=== PATIENT | female | born 1955 | race Caucasian/White ===

== ENCOUNTER 2021-03-25 14:53 | Inpatient (IN) | payer OTHER ==
[2021-03-25] MEDS ORDERED: IBUPROFEN 400 MG TABLET (FP) PO PRN (15:52)
[2021-03-25] MEDS ORDERED: MAG HYDROX/AL HYDROX/SIMETH 30 ML UNIT-DOSE CUP PO PRN (15:52)
[2021-03-25] MEDS ORDERED: ACETAMINOPHEN 325 MG TABLET (FP) PO PRN ×2 (15:52)
[2021-03-25] MEDS ORDERED: NICOTINE 10 MG CARTRIDGE (INHALER) IH PRN (15:52)
[2021-03-25] MEDS ORDERED: MAGNESIUM HYDROX 2400MG/30ML ORAL SUSPENSION 30 ML CUP PO PRN (15:52)
[2021-03-25] MEDS ORDERED: MAGNESIUM CITRATE 300 ML BOTTLE PO PRN (15:52)
[2021-03-25] MEDS ORDERED: BISMUTH SUBSALICYLATE 524 MG/30 ML PO PRN (15:52)
[2021-03-25] MEDS ORDERED: ONDANSETRON *ODT* 4 MG TABLET SL PRN (15:52)
[2021-03-25 16:51] VITALS: BMI 27.3
[2021-03-25] MEDS: diazePAM 5 MG TABLET PO SCH ×2 (18:57→22:08)
[2021-03-25] MEDS: hydrOXYzine PAMOATE 25 MG CAPSULE (FP) PO SCH ×2 (18:59→22:08)
[2021-03-25] MEDS: THIAMINE HCL 100 MG TABLET (FP) PO SCH (22:08)
[2021-03-25] MEDS: MELATONIN 5 MG TABLETS PO SCH (22:09)
[2021-03-26] MEDS: MENTHOL/PHENOL 1 EACH UD MM PRN (04:49)
[2021-03-26] MEDS: hydrOXYzine PAMOATE 25 MG CAPSULE (FP) PO SCH (06:14)
[2021-03-26] MEDS: diazePAM 5 MG TABLET PO SCH ×4 (06:15→22:19)
[2021-03-26] MEDS: PRENATAL VITAMINS W/ FOLIC ACID TABLET (FP) PO SCH (10:10)
[2021-03-26] MEDS: METHOCARBAMOL 500 MG TABLET PO PRN (10:10)
[2021-03-26] MEDS: methaDONE HCL 40 MG DISPERSABLE TABLET PO SCH (10:32)
[2021-03-26 11:08] LABS: HEMATOCRIT 35.4 % (32.4-45.2); MCH 31.9 pg (25.7-33.7); MCHC 33.9 g/dl (32.0-36.0); MEAN CELL VOLUME 94.1 fl (80-96); MEAN PLT VOLUME 9.2 fl (7.5-11.1); RBC 3.76 M/mm3 (3.60-5.2); RDW 13.8 % (11.6-15.6); WHITE BLOOD COUNT 6.4 K/mm3 (4.0-10.0)
[2021-03-26 11:38] LABS: CALCIUM 9.4 mg/dL (8.5-10.1)
[2021-03-26 11:39] LABS: ALBUMIN 3.9 g/dl (3.4-5.0); BLOOD UREA NITROGEN 17.8 mg/dL (7-18)
[2021-03-26 11:42] LABS: CREATININE 0.9 mg/dL (0.55-1.3)
[2021-03-26 11:43] LABS: BILIRUBIN,TOTAL 0.3 mg/dL (0.2-1); TOT PROT 8.3 g/dl (6.4-8.2)
[2021-03-26] MEDS: MIRTAZAPINE 15 MG TABLET (FP) PO SCH (22:19)
[2021-03-26] MEDS: MELATONIN 5 MG TABLETS PO SCH (22:19)
[2021-03-26] MEDS: THIAMINE HCL 100 MG TABLET (FP) PO SCH (22:19)
[2021-03-27] MEDS: diazePAM 5 MG TABLET PO SCH ×3 (05:54→22:28)
[2021-03-27] MEDS: methaDONE HCL 40 MG DISPERSABLE TABLET PO SCH (05:54)
[2021-03-27] MEDS: hydrOXYzine PAMOATE 25 MG CAPSULE (FP) PO PRN (05:56)
[2021-03-27] MEDS: METHOCARBAMOL 500 MG TABLET PO PRN (10:45)
[2021-03-27] MEDS: PRENATAL VITAMINS W/ FOLIC ACID TABLET (FP) PO SCH (10:45)
[2021-03-27] MEDS: DULoxetine HCL 30 MG CAPSULE.DR PO SCH (10:45)
[2021-03-27] MEDS: diazePAM 5 MG TABLET PO PRN (10:45)
[2021-03-27 11:36] LABS: HEMATOCRIT 35.2 % (32.4-45.2); HEMOGLOBIN 11.9 GM/dL (10.7-15.3); MCH 31.7 pg (25.7-33.7); MCHC 33.8 g/dl (32.0-36.0); MEAN CELL VOLUME 93.8 fl (80-96); MEAN PLT VOLUME 7.2 fl (7.5-11.1); PLATELET COUNT 315 10^3/uL (134-434); RBC 3.75 M/mm3 (3.60-5.2); RDW 13.9 % (11.6-15.6); WHITE BLOOD COUNT 4.5 K/mm3 (4.0-10.0)
[2021-03-27] MEDS: THIAMINE HCL 100 MG TABLET (FP) PO SCH (22:28)
[2021-03-27] MEDS: MIRTAZAPINE 15 MG TABLET (FP) PO SCH (22:28)
[2021-03-27] MEDS: MELATONIN 5 MG TABLETS PO SCH (22:29)
[2021-03-27] MEDS: MENTHOL/PHENOL 1 EACH UD MM PRN (22:29)
[2021-03-28] MEDS: methaDONE HCL 40 MG DISPERSABLE TABLET PO SCH (05:27)
[2021-03-28] MEDS: diazePAM 5 MG TABLET PO SCH ×2 (05:28→18:13)
[2021-03-28] MEDS: METHOCARBAMOL 500 MG TABLET PO PRN ×2 (10:23→23:17)
[2021-03-28] MEDS: DULoxetine HCL 30 MG CAPSULE.DR PO SCH (10:23)
[2021-03-28] MEDS: PRENATAL VITAMINS W/ FOLIC ACID TABLET (FP) PO SCH (10:23)
[2021-03-28] MEDS: diazePAM 5 MG TABLET PO PRN (10:23)
[2021-03-28] MEDS: MELATONIN 5 MG TABLETS PO SCH (22:15)
[2021-03-28] MEDS: MIRTAZAPINE 15 MG TABLET (FP) PO SCH (22:15)
[2021-03-28] MEDS: THIAMINE HCL 100 MG TABLET (FP) PO SCH (22:15)
[2021-03-28] MEDS: MENTHOL/PHENOL 1 EACH UD MM PRN (22:16)
[2021-03-29] MEDS: methaDONE HCL 40 MG DISPERSABLE TABLET PO SCH (05:36)
[2021-03-29] MEDS ORDERED: diazePAM 5 MG TABLET PO ONE (06:00)
[2021-03-29] MEDS: METHOCARBAMOL 500 MG TABLET PO PRN (10:09)
[2021-03-29] MEDS: hydrOXYzine PAMOATE 25 MG CAPSULE (FP) PO PRN (10:09)
[2021-03-29] MEDS: DULoxetine HCL 30 MG CAPSULE.DR PO SCH (10:09)
[2021-03-29] MEDS: PRENATAL VITAMINS W/ FOLIC ACID TABLET (FP) PO SCH (10:09)
[2021-03-29 18:30] VITALS: BP 147/82; PULSE 76; TEMP 96.8
== END 2021-03-29 17:45 | disposition other institution (70) | DRG 773 ==
LOC: YASAS 14:53 → Y6N 17:32
PROVIDERS: ADMIT Allergy & Immunology; ATTEND Allergy & Immunology
PROC: HZ2ZZZZ Detoxification Services for Substance Abuse Treatment (ICD-10-PCS; principal; 2021-03-25)
DX: F13.230 Sedative, hypnotic or anxiolytic dependence with withdrawal, uncomplicated (principal); F11.20 Opioid dependence, uncomplicated; F17.210 Nicotine dependence, cigarettes, uncomplicated; F19.282 Other psychoactive substance dependence with psychoactive substance-induced sleep disorder; F31.9 Bipolar disorder, unspecified; F43.10 Post-traumatic stress disorder, unspecified; F32.A Depression, unspecified; Z21 Asymptomatic human immunodeficiency virus [HIV] infection status; I25.10 Atherosclerotic heart disease of native coronary artery without angina pectoris; I10 Essential (primary) hypertension; J45.909 Unspecified asthma, uncomplicated; E11.9 Type 2 diabetes mellitus without complications; Z79.4 Long term (current) use of insulin; Z59.00 Homelessness unspecified
CPT/HCPCS: 36415; 80053; 82962; 85027; 86780; 93005; 93010; C9803; U0003; U0005

== ENCOUNTER 2021-03-29 17:33 | Inpatient (IN) | payer OTHER ==
[~2021-03-29 17:33] MED LIST: IBUPROFEN 400 MG TABLET (FP) PO PRN; LOPERAMIDE HCL 2 MG CAPSULE PO PRN; MAG HYDROX/AL HYDROX/SIMETH 30 ML UNIT-DOSE CUP PO PRN; MAGNESIUM CITRATE 300 ML BOTTLE PO PRN; MAGNESIUM HYDROX 2400MG/30ML ORAL SUSPENSION 30 ML CUP PO PRN; P-EPHED 60MG/TRIPROLIDI 2.5MG TABLET PO PRN; guaiFENesin 200 MG/10 ML 10 ML UNIT-DOSE CUPS PO PRN
[2021-03-29] MEDS: THIAMINE HCL 100 MG TABLET (FP) PO SCH (21:05)
[2021-03-29] MEDS: MIRTAZAPINE 15 MG TABLET (FP) PO SCH (21:05)
[2021-03-29] MEDS: MELATONIN 5 MG TABLETS PO SCH (21:41)
[2021-03-30] MEDS: methaDONE HCL 40 MG DISPERSABLE TABLET PO SCH (08:53)
[2021-03-30] MEDS: hydrOXYzine PAMOATE 25 MG CAPSULE (FP) PO PRN (08:54)
[2021-03-30] MEDS: DULoxetine HCL 30 MG CAPSULE.DR PO SCH (09:38)
[2021-03-30] MEDS: PRENATAL VITAMINS W/ FOLIC ACID TABLET (FP) PO SCH (09:38)
[2021-03-30] MEDS: amLODIPine BESYLATE 5 MG TABLET (FP) PO SCH (17:40)
[2021-03-30] MEDS: LISINOPRIL 5 MG TABLET PO SCH (17:40)
[2021-03-30] MEDS ORDERED: ABACAVIR SULFATE 300 MG TABLET PO SCH (18:30)
[2021-03-30] MEDS ORDERED: DOLUTEGRAVIR SODIUM 50 MG TABLET (NON-FORMULARY) PO SCH (18:30)
[2021-03-30] MEDS ORDERED: lamiVUDine 150 MG TABLET PO SCH (18:30)
[2021-03-30] MEDS: RIVAROXABAN 20 MG TABLET PO SCH (21:36)
[2021-03-30] MEDS: THIAMINE HCL 100 MG TABLET (FP) PO SCH (21:36)
[2021-03-30] MEDS: MIRTAZAPINE 15 MG TABLET (FP) PO SCH (21:37)
[2021-03-30] MEDS: ATORVASTATIN CA 40 MG TABLET (FP) PO SCH (21:37)
[2021-03-30] MEDS: MELATONIN 5 MG TABLETS PO SCH (21:37)
[2021-03-30] MEDS: GABAPENTIN 300 MG CAPSULE PO SCH (21:38)
[2021-03-30] MEDS: ABACAVIR/DOLUTEGRAVIR/LAMIVUDI (TRIUMEQ) TABLET -NF PO SCH (22:37)
[2021-03-30] MEDS: BENZOCAINE/MENTH/CETYLPYRD CL 1 EACH LOZENGE MM PRN (22:38)
[2021-03-31] MEDS ORDERED: PT OWN MED DRAWER 7, Y5N ONE (03:30)
[2021-03-31] MEDS: methaDONE HCL 40 MG DISPERSABLE TABLET PO SCH (06:32)
[2021-03-31] MEDS: sitaGLIPtin PHOSPHATE 50 MG TABLET PO SCH (06:32)
[2021-03-31] MEDS ORDERED: PATIENT'S OWN MEDICATION (NON-FORMULARY) (Fenofibrate Nanocrystallized [Fenofibrate] 145 M PO SCH (10:00)
[2021-03-31] MEDS: RIVAROXABAN 20 MG TABLET PO SCH (10:27)
[2021-03-31] MEDS: GABAPENTIN 300 MG CAPSULE PO SCH ×2 (10:27→21:38)
[2021-03-31] MEDS: DULoxetine HCL 30 MG CAPSULE.DR PO SCH (10:27)
[2021-03-31] MEDS: FENOFIBRIC ACID 135 MG CAP PO SCH (10:27)
[2021-03-31] MEDS: ASPIRIN COATED 81 MG TABLET.EC PO SCH (10:27)
[2021-03-31] MEDS: amLODIPine BESYLATE 5 MG TABLET (FP) PO SCH (10:27)
[2021-03-31] MEDS: PRENATAL VITAMINS W/ FOLIC ACID TABLET (FP) PO SCH (10:27)
[2021-03-31] MEDS: LISINOPRIL 5 MG TABLET PO SCH (10:27)
[2021-03-31] MEDS: ABACAVIR/DOLUTEGRAVIR/LAMIVUDI (TRIUMEQ) TABLET -NF PO SCH (10:28)
[2021-03-31] MEDS: CHOLECALCIFEROL (VIT D3) 1,000 UNIT (25 MCG) TABLET PO SCH (13:04)
[2021-03-31] MEDS: hydrOXYzine PAMOATE 25 MG CAPSULE (FP) PO PRN (21:37)
[2021-03-31] MEDS: ATORVASTATIN CA 40 MG TABLET (FP) PO SCH (21:38)
[2021-03-31] MEDS: MIRTAZAPINE 15 MG TABLET (FP) PO SCH (21:38)
[2021-03-31] MEDS: MELATONIN 5 MG TABLETS PO SCH (21:38)
[2021-03-31] MEDS: THIAMINE HCL 100 MG TABLET (FP) PO SCH (21:38)
[2021-04-01] MEDS ORDERED: PT OWN MED DRAWER 7, Y5N ONE (03:24)
[2021-04-01] MEDS: methaDONE HCL 40 MG DISPERSABLE TABLET PO SCH (06:42)
[2021-04-01] MEDS: sitaGLIPtin PHOSPHATE 50 MG TABLET PO SCH (06:42)
[2021-04-01] MEDS: CHOLECALCIFEROL (VIT D3) 1,000 UNIT (25 MCG) TABLET PO SCH (10:44)
[2021-04-01] MEDS: PRENATAL VITAMINS W/ FOLIC ACID TABLET (FP) PO SCH (10:44)
[2021-04-01] MEDS: ASPIRIN COATED 81 MG TABLET.EC PO SCH (10:44)
[2021-04-01] MEDS: RIVAROXABAN 20 MG TABLET PO SCH (10:44)
[2021-04-01] MEDS: GABAPENTIN 300 MG CAPSULE PO SCH ×2 (10:44→21:51)
[2021-04-01] MEDS: DULoxetine HCL 30 MG CAPSULE.DR PO SCH (10:45)
[2021-04-01] MEDS: amLODIPine BESYLATE 5 MG TABLET (FP) PO SCH (10:45)
[2021-04-01] MEDS: FENOFIBRIC ACID 135 MG CAP PO SCH (10:45)
[2021-04-01] MEDS: LISINOPRIL 5 MG TABLET PO SCH (10:45)
[2021-04-01] MEDS: ABACAVIR/DOLUTEGRAVIR/LAMIVUDI (TRIUMEQ) TABLET -NF PO SCH (10:45)
[2021-04-01] MEDS: ACETAMINOPHEN 325 MG TABLET (FP) PO PRN (10:47)
[2021-04-01] MEDS: THIAMINE HCL 100 MG TABLET (FP) PO SCH (21:51)
[2021-04-01] MEDS: MELATONIN 5 MG TABLETS PO SCH (21:51)
[2021-04-01] MEDS: ATORVASTATIN CA 40 MG TABLET (FP) PO SCH (21:51)
[2021-04-01] MEDS: MIRTAZAPINE 15 MG TABLET (FP) PO SCH (21:51)
[2021-04-02] MEDS: sitaGLIPtin PHOSPHATE 50 MG TABLET PO SCH (06:49)
[2021-04-02] MEDS: methaDONE HCL 40 MG DISPERSABLE TABLET PO SCH (06:49)
[2021-04-02] MEDS: ASPIRIN COATED 81 MG TABLET.EC PO SCH (10:21)
[2021-04-02] MEDS: GABAPENTIN 300 MG CAPSULE PO SCH ×2 (10:21→21:42)
[2021-04-02] MEDS: DULoxetine HCL 30 MG CAPSULE.DR PO SCH (10:22)
[2021-04-02] MEDS: METHYL SALICYLATE/MENTHOL OINT 30 GM TUBE TP SCH ×2 (10:22→21:45)
[2021-04-02] MEDS: PRENATAL VITAMINS W/ FOLIC ACID TABLET (FP) PO SCH (10:23)
[2021-04-02] MEDS: amLODIPine BESYLATE 5 MG TABLET (FP) PO SCH (10:23)
[2021-04-02] MEDS: LISINOPRIL 5 MG TABLET PO SCH (10:23)
[2021-04-02] MEDS: ACETAMINOPHEN 325 MG TABLET (FP) PO PRN (10:24)
[2021-04-02] MEDS: ABACAVIR/DOLUTEGRAVIR/LAMIVUDI (TRIUMEQ) TABLET -NF PO SCH (10:25)
[2021-04-02] MEDS: FENOFIBRIC ACID 135 MG CAP PO SCH (10:26)
[2021-04-02] MEDS: RIVAROXABAN 20 MG TABLET PO SCH (10:26)
[2021-04-02] MEDS: CHOLECALCIFEROL (VIT D3) 1,000 UNIT (25 MCG) TABLET PO SCH (10:27)
[2021-04-02] MEDS ORDERED: ACETAMINOPHEN 325 MG TABLET (FP) PO PRN (10:36)
[2021-04-02] MEDS: LIDOCAINE 5% TOPICAL PATCH TP SCH (13:56)
[2021-04-02] MEDS: BENZOCAINE/MENTH/CETYLPYRD CL 1 EACH LOZENGE MM PRN (20:58)
[2021-04-02] MEDS: MELATONIN 5 MG TABLETS PO SCH (21:42)
[2021-04-02] MEDS: ATORVASTATIN CA 40 MG TABLET (FP) PO SCH (21:42)
[2021-04-02] MEDS: THIAMINE HCL 100 MG TABLET (FP) PO SCH (21:42)
[2021-04-02] MEDS: MIRTAZAPINE 15 MG TABLET (FP) PO SCH (21:43)
[2021-04-02] MEDS: LIDOCAINE PATCH REMOVAL MC SCH (21:43)
[2021-04-03] MEDS: methaDONE HCL 40 MG DISPERSABLE TABLET PO SCH (06:40)
[2021-04-03] MEDS: sitaGLIPtin PHOSPHATE 50 MG TABLET PO SCH (06:41)
[2021-04-03] MEDS: ASPIRIN COATED 81 MG TABLET.EC PO SCH (10:13)
[2021-04-03] MEDS: PRENATAL VITAMINS W/ FOLIC ACID TABLET (FP) PO SCH (10:13)
[2021-04-03] MEDS: DULoxetine HCL 30 MG CAPSULE.DR PO SCH (10:13)
[2021-04-03] MEDS: ABACAVIR/DOLUTEGRAVIR/LAMIVUDI (TRIUMEQ) TABLET -NF PO SCH (10:14)
[2021-04-03] MEDS: RIVAROXABAN 20 MG TABLET PO SCH (10:14)
[2021-04-03] MEDS: amLODIPine BESYLATE 5 MG TABLET (FP) PO SCH (10:14)
[2021-04-03] MEDS: FENOFIBRIC ACID 135 MG CAP PO SCH (10:14)
[2021-04-03] MEDS: GABAPENTIN 300 MG CAPSULE PO SCH ×2 (10:14→21:52)
[2021-04-03] MEDS: LIDOCAINE 5% TOPICAL PATCH TP SCH (10:14)
[2021-04-03] MEDS: LISINOPRIL 5 MG TABLET PO SCH (10:15)
[2021-04-03] MEDS: CHOLECALCIFEROL (VIT D3) 1,000 UNIT (25 MCG) TABLET PO SCH (10:15)
[2021-04-03] MEDS: METHYL SALICYLATE/MENTHOL OINT 30 GM TUBE TP SCH ×2 (10:17→22:31)
[2021-04-03] MEDS: MELATONIN 5 MG TABLETS PO SCH (21:52)
[2021-04-03] MEDS: MIRTAZAPINE 15 MG TABLET (FP) PO SCH (21:52)
[2021-04-03] MEDS: LIDOCAINE PATCH REMOVAL MC SCH (21:52)
[2021-04-03] MEDS: ATORVASTATIN CA 40 MG TABLET (FP) PO SCH (21:52)
[2021-04-03] MEDS: THIAMINE HCL 100 MG TABLET (FP) PO SCH (22:31)
[2021-04-04] MEDS ORDERED: PT OWN MED DRAWER 7, Y5N ONE (03:35)
[2021-04-04] MEDS: methaDONE HCL 40 MG DISPERSABLE TABLET PO SCH (06:37)
[2021-04-04] MEDS: sitaGLIPtin PHOSPHATE 50 MG TABLET PO SCH (06:37)
[2021-04-04] MEDS: PRENATAL VITAMINS W/ FOLIC ACID TABLET (FP) PO SCH (10:18)
[2021-04-04] MEDS: DULoxetine HCL 30 MG CAPSULE.DR PO SCH (10:18)
[2021-04-04] MEDS: ASPIRIN COATED 81 MG TABLET.EC PO SCH (10:18)
[2021-04-04] MEDS: LISINOPRIL 5 MG TABLET PO SCH (10:18)
[2021-04-04] MEDS: ABACAVIR/DOLUTEGRAVIR/LAMIVUDI (TRIUMEQ) TABLET -NF PO SCH (10:18)
[2021-04-04] MEDS: GABAPENTIN 300 MG CAPSULE PO SCH ×2 (10:18→21:56)
[2021-04-04] MEDS: amLODIPine BESYLATE 5 MG TABLET (FP) PO SCH (10:19)
[2021-04-04] MEDS: FENOFIBRIC ACID 135 MG CAP PO SCH (10:19)
[2021-04-04] MEDS: METHYL SALICYLATE/MENTHOL OINT 30 GM TUBE TP SCH ×2 (10:19→21:57)
[2021-04-04] MEDS: LIDOCAINE 5% TOPICAL PATCH TP SCH (10:20)
[2021-04-04] MEDS: BENZOCAINE/MENTH/CETYLPYRD CL 1 EACH LOZENGE MM PRN (10:22)
[2021-04-04] MEDS: CHOLECALCIFEROL (VIT D3) 1,000 UNIT (25 MCG) TABLET PO SCH (10:29)
[2021-04-04] MEDS: RIVAROXABAN 20 MG TABLET PO SCH (10:30)
[2021-04-04] MEDS: ATORVASTATIN CA 40 MG TABLET (FP) PO SCH (21:56)
[2021-04-04] MEDS: MELATONIN 5 MG TABLETS PO SCH (21:56)
[2021-04-04] MEDS: MIRTAZAPINE 15 MG TABLET (FP) PO SCH (21:56)
[2021-04-04] MEDS: THIAMINE HCL 100 MG TABLET (FP) PO SCH (21:56)
[2021-04-04] MEDS: LIDOCAINE PATCH REMOVAL MC SCH (21:57)
[2021-04-05] MEDS: sitaGLIPtin PHOSPHATE 50 MG TABLET PO SCH (06:42)
[2021-04-05] MEDS: methaDONE HCL 40 MG DISPERSABLE TABLET PO SCH (06:43)
[2021-04-05] MEDS: DULoxetine HCL 30 MG CAPSULE.DR PO SCH (10:39)
[2021-04-05] MEDS: ASPIRIN COATED 81 MG TABLET.EC PO SCH (10:39)
[2021-04-05] MEDS: GABAPENTIN 300 MG CAPSULE PO SCH ×2 (10:39→22:04)
[2021-04-05] MEDS: PRENATAL VITAMINS W/ FOLIC ACID TABLET (FP) PO SCH (10:39)
[2021-04-05] MEDS: amLODIPine BESYLATE 5 MG TABLET (FP) PO SCH (10:39)
[2021-04-05] MEDS: LISINOPRIL 5 MG TABLET PO SCH (10:40)
[2021-04-05] MEDS: METHYL SALICYLATE/MENTHOL OINT 30 GM TUBE TP SCH ×2 (10:40→22:01)
[2021-04-05] MEDS: RIVAROXABAN 20 MG TABLET PO SCH (10:40)
[2021-04-05] MEDS: LIDOCAINE 5% TOPICAL PATCH TP SCH (10:40)
[2021-04-05] MEDS: ABACAVIR/DOLUTEGRAVIR/LAMIVUDI (TRIUMEQ) TABLET -NF PO SCH (10:41)
[2021-04-05] MEDS: FENOFIBRIC ACID 135 MG CAP PO SCH (10:41)
[2021-04-05] MEDS: CHOLECALCIFEROL (VIT D3) 1,000 UNIT (25 MCG) TABLET PO SCH (10:41)
[2021-04-05] MEDS: LIDOCAINE PATCH REMOVAL MC SCH (22:01)
[2021-04-05] MEDS: ATORVASTATIN CA 40 MG TABLET (FP) PO SCH (22:04)
[2021-04-05] MEDS: MELATONIN 5 MG TABLETS PO SCH (22:04)
[2021-04-05] MEDS: THIAMINE HCL 100 MG TABLET (FP) PO SCH (22:04)
[2021-04-05] MEDS: BENZOCAINE/MENTH/CETYLPYRD CL 1 EACH LOZENGE MM PRN (22:05)
[2021-04-05] MEDS: MIRTAZAPINE 15 MG TABLET (FP) PO SCH (22:05)
[2021-04-06] MEDS ORDERED: PT OWN MED DRAWER 7, Y5N ONE (03:18)
[2021-04-06] MEDS: methaDONE HCL 40 MG DISPERSABLE TABLET PO SCH (06:48)
[2021-04-06] MEDS: sitaGLIPtin PHOSPHATE 50 MG TABLET PO SCH (06:49)
[2021-04-06] MEDS: METHYL SALICYLATE/MENTHOL OINT 30 GM TUBE TP SCH ×2 (10:22→21:17)
[2021-04-06] MEDS: PRENATAL VITAMINS W/ FOLIC ACID TABLET (FP) PO SCH (10:22)
[2021-04-06] MEDS: ASPIRIN COATED 81 MG TABLET.EC PO SCH (10:23)
[2021-04-06] MEDS: GABAPENTIN 300 MG CAPSULE PO SCH ×2 (10:23→21:16)
[2021-04-06] MEDS: DULoxetine HCL 30 MG CAPSULE.DR PO SCH (10:23)
[2021-04-06] MEDS: LISINOPRIL 5 MG TABLET PO SCH (10:23)
[2021-04-06] MEDS: amLODIPine BESYLATE 5 MG TABLET (FP) PO SCH (10:23)
[2021-04-06] MEDS: ABACAVIR/DOLUTEGRAVIR/LAMIVUDI (TRIUMEQ) TABLET -NF PO SCH (10:24)
[2021-04-06] MEDS: RIVAROXABAN 20 MG TABLET PO SCH (10:24)
[2021-04-06] MEDS: CHOLECALCIFEROL (VIT D3) 1,000 UNIT (25 MCG) TABLET PO SCH (10:24)
[2021-04-06] MEDS: FENOFIBRIC ACID 135 MG CAP PO SCH (10:26)
[2021-04-06] MEDS: LIDOCAINE 5% TOPICAL PATCH TP SCH (11:18)
[2021-04-06] MEDS: MELATONIN 5 MG TABLETS PO SCH (21:16)
[2021-04-06] MEDS: THIAMINE HCL 100 MG TABLET (FP) PO SCH (21:16)
[2021-04-06] MEDS: MIRTAZAPINE 15 MG TABLET (FP) PO SCH (21:16)
[2021-04-06] MEDS: LIDOCAINE PATCH REMOVAL MC SCH (21:16)
[2021-04-06] MEDS: ATORVASTATIN CA 40 MG TABLET (FP) PO SCH (21:16)
[2021-04-07] MEDS: sitaGLIPtin PHOSPHATE 50 MG TABLET PO SCH (07:02)
[2021-04-07] MEDS: methaDONE HCL 40 MG DISPERSABLE TABLET PO SCH (07:02)
[2021-04-07] MEDS: METHYL SALICYLATE/MENTHOL OINT 30 GM TUBE TP SCH ×2 (10:54→21:31)
[2021-04-07] MEDS: PRENATAL VITAMINS W/ FOLIC ACID TABLET (FP) PO SCH (10:54)
[2021-04-07] MEDS: amLODIPine BESYLATE 5 MG TABLET (FP) PO SCH (10:54)
[2021-04-07] MEDS: DULoxetine HCL 30 MG CAPSULE.DR PO SCH (10:55)
[2021-04-07] MEDS: LIDOCAINE 5% TOPICAL PATCH TP SCH (10:55)
[2021-04-07] MEDS: LISINOPRIL 5 MG TABLET PO SCH (10:55)
[2021-04-07] MEDS: ASPIRIN COATED 81 MG TABLET.EC PO SCH (10:55)
[2021-04-07] MEDS: GABAPENTIN 300 MG CAPSULE PO SCH ×2 (10:55→21:30)
[2021-04-07] MEDS: ABACAVIR/DOLUTEGRAVIR/LAMIVUDI (TRIUMEQ) TABLET -NF PO SCH (10:56)
[2021-04-07] MEDS: RIVAROXABAN 20 MG TABLET PO SCH (10:56)
[2021-04-07] MEDS: CHOLECALCIFEROL (VIT D3) 1,000 UNIT (25 MCG) TABLET PO SCH (10:56)
[2021-04-07] MEDS: FENOFIBRIC ACID 135 MG CAP PO SCH (10:57)
[2021-04-07] MEDS: BENZOCAINE/MENTH/CETYLPYRD CL 1 EACH LOZENGE MM PRN (11:00)
[2021-04-07] MEDS: MIRTAZAPINE 15 MG TABLET (FP) PO SCH (21:30)
[2021-04-07] MEDS: MELATONIN 5 MG TABLETS PO SCH (21:30)
[2021-04-07] MEDS: THIAMINE HCL 100 MG TABLET (FP) PO SCH (21:30)
[2021-04-07] MEDS: LIDOCAINE PATCH REMOVAL MC SCH (21:30)
[2021-04-07] MEDS: ATORVASTATIN CA 40 MG TABLET (FP) PO SCH (21:30)
[2021-04-08] MEDS ORDERED: PT OWN MED DRAWER 7, Y5N ONE (03:27)
[2021-04-08] MEDS: sitaGLIPtin PHOSPHATE 50 MG TABLET PO SCH (06:44)
[2021-04-08] MEDS: methaDONE HCL 40 MG DISPERSABLE TABLET PO SCH (06:44)
[2021-04-08] MEDS: PRENATAL VITAMINS W/ FOLIC ACID TABLET (FP) PO SCH (10:52)
[2021-04-08] MEDS: LISINOPRIL 5 MG TABLET PO SCH (10:53)
[2021-04-08] MEDS: LIDOCAINE 5% TOPICAL PATCH TP SCH (10:53)
[2021-04-08] MEDS: ASPIRIN COATED 81 MG TABLET.EC PO SCH (10:53)
[2021-04-08] MEDS: amLODIPine BESYLATE 5 MG TABLET (FP) PO SCH (10:53)
[2021-04-08] MEDS: METHYL SALICYLATE/MENTHOL OINT 30 GM TUBE TP SCH ×2 (10:53→21:53)
[2021-04-08] MEDS: GABAPENTIN 300 MG CAPSULE PO SCH ×2 (10:53→21:53)
[2021-04-08] MEDS: DULoxetine HCL 30 MG CAPSULE.DR PO SCH (10:53)
[2021-04-08] MEDS: FENOFIBRIC ACID 135 MG CAP PO SCH (10:54)
[2021-04-08] MEDS: RIVAROXABAN 20 MG TABLET PO SCH (10:54)
[2021-04-08] MEDS: CHOLECALCIFEROL (VIT D3) 1,000 UNIT (25 MCG) TABLET PO SCH (10:54)
[2021-04-08] MEDS: ABACAVIR/DOLUTEGRAVIR/LAMIVUDI (TRIUMEQ) TABLET -NF PO SCH (10:54)
[2021-04-08] MEDS: BENZOCAINE/MENTH/CETYLPYRD CL 1 EACH LOZENGE MM PRN (10:57)
[2021-04-08] MEDS: MIRTAZAPINE 15 MG TABLET (FP) PO SCH (21:52)
[2021-04-08] MEDS: ATORVASTATIN CA 40 MG TABLET (FP) PO SCH (21:52)
[2021-04-08] MEDS: LIDOCAINE PATCH REMOVAL MC SCH (21:53)
[2021-04-08] MEDS: THIAMINE HCL 100 MG TABLET (FP) PO SCH (21:53)
[2021-04-08] MEDS: MELATONIN 5 MG TABLETS PO SCH (21:53)
[2021-04-08] MEDS: hydrOXYzine PAMOATE 25 MG CAPSULE (FP) PO PRN (21:54)
[2021-04-09] MEDS ORDERED: PT OWN MED DRAWER 7, Y5N ONE (03:42)
[2021-04-09] MEDS: methaDONE HCL 40 MG DISPERSABLE TABLET PO SCH (07:04)
[2021-04-09] MEDS: sitaGLIPtin PHOSPHATE 50 MG TABLET PO SCH (07:04)
[2021-04-09] MEDS: GABAPENTIN 300 MG CAPSULE PO SCH ×2 (10:21→21:16)
[2021-04-09] MEDS: ASPIRIN COATED 81 MG TABLET.EC PO SCH (10:21)
[2021-04-09] MEDS: PRENATAL VITAMINS W/ FOLIC ACID TABLET (FP) PO SCH (10:21)
[2021-04-09] MEDS: RIVAROXABAN 20 MG TABLET PO SCH (10:21)
[2021-04-09] MEDS: ABACAVIR/DOLUTEGRAVIR/LAMIVUDI (TRIUMEQ) TABLET -NF PO SCH (10:21)
[2021-04-09] MEDS: amLODIPine BESYLATE 5 MG TABLET (FP) PO SCH (10:21)
[2021-04-09] MEDS: FENOFIBRIC ACID 135 MG CAP PO SCH (10:21)
[2021-04-09] MEDS: DULoxetine HCL 30 MG CAPSULE.DR PO SCH (10:21)
[2021-04-09] MEDS: LISINOPRIL 5 MG TABLET PO SCH (10:21)
[2021-04-09] MEDS: CHOLECALCIFEROL (VIT D3) 1,000 UNIT (25 MCG) TABLET PO SCH (10:22)
[2021-04-09] MEDS: BENZOCAINE/MENTH/CETYLPYRD CL 1 EACH LOZENGE MM PRN ×2 (10:23→21:17)
[2021-04-09] MEDS: METHYL SALICYLATE/MENTHOL OINT 30 GM TUBE TP SCH ×2 (10:23→21:38)
[2021-04-09] MEDS: LIDOCAINE 5% TOPICAL PATCH TP SCH (10:23)
[2021-04-09] MEDS ORDERED: INSULIN (NOVOLOG) ASPART 100 UNITS/ML 10ML VIAL ONE (17:14)
[2021-04-09] MEDS: INSULIN SLIDING SCALE (NOVOLOG) 1 VIAL SQ SCH (17:15)
[2021-04-09] MEDS: MELATONIN 5 MG TABLETS PO SCH (21:16)
[2021-04-09] MEDS: ATORVASTATIN CA 40 MG TABLET (FP) PO SCH (21:16)
[2021-04-09] MEDS: THIAMINE HCL 100 MG TABLET (FP) PO SCH (21:16)
[2021-04-09] MEDS: MIRTAZAPINE 15 MG TABLET (FP) PO SCH (21:16)
[2021-04-09] MEDS: LIDOCAINE PATCH REMOVAL MC SCH (21:38)
[2021-04-10] MEDS: INSULIN SLIDING SCALE (NOVOLOG) 1 VIAL SQ SCH ×2 (06:41→17:02)
[2021-04-10] MEDS ORDERED: INSULIN (NOVOLOG) ASPART 100 UNITS/ML 10ML VIAL ONE ×3 (06:41→17:00)
[2021-04-10] MEDS: methaDONE HCL 40 MG DISPERSABLE TABLET PO SCH (06:42)
[2021-04-10] MEDS: sitaGLIPtin PHOSPHATE 50 MG TABLET PO SCH (06:44)
[2021-04-10] MEDS: GABAPENTIN 300 MG CAPSULE PO SCH ×2 (10:20→21:21)
[2021-04-10] MEDS: ASPIRIN COATED 81 MG TABLET.EC PO SCH (10:20)
[2021-04-10] MEDS: DULoxetine HCL 30 MG CAPSULE.DR PO SCH (10:20)
[2021-04-10] MEDS: PRENATAL VITAMINS W/ FOLIC ACID TABLET (FP) PO SCH (10:20)
[2021-04-10] MEDS: LIDOCAINE 5% TOPICAL PATCH TP SCH (10:20)
[2021-04-10] MEDS: amLODIPine BESYLATE 5 MG TABLET (FP) PO SCH (10:20)
[2021-04-10] MEDS: LISINOPRIL 5 MG TABLET PO SCH (10:20)
[2021-04-10] MEDS: CHOLECALCIFEROL (VIT D3) 1,000 UNIT (25 MCG) TABLET PO SCH (10:21)
[2021-04-10] MEDS: FENOFIBRIC ACID 135 MG CAP PO SCH (10:21)
[2021-04-10] MEDS: RIVAROXABAN 20 MG TABLET PO SCH (10:21)
[2021-04-10] MEDS: ABACAVIR/DOLUTEGRAVIR/LAMIVUDI (TRIUMEQ) TABLET -NF PO SCH (10:22)
[2021-04-10] MEDS: METHYL SALICYLATE/MENTHOL OINT 30 GM TUBE TP SCH ×2 (10:26→21:22)
[2021-04-10] MEDS: BENZOCAINE/MENTH/CETYLPYRD CL 1 EACH LOZENGE MM PRN (17:02)
[2021-04-10] MEDS: MELATONIN 5 MG TABLETS PO SCH (21:21)
[2021-04-10] MEDS: ATORVASTATIN CA 40 MG TABLET (FP) PO SCH (21:21)
[2021-04-10] MEDS: MIRTAZAPINE 15 MG TABLET (FP) PO SCH (21:21)
[2021-04-10] MEDS: THIAMINE HCL 100 MG TABLET (FP) PO SCH (21:21)
[2021-04-10] MEDS: LIDOCAINE PATCH REMOVAL MC SCH (21:22)
[2021-04-11] MEDS: methaDONE HCL 40 MG DISPERSABLE TABLET PO SCH (06:49)
[2021-04-11] MEDS: sitaGLIPtin PHOSPHATE 50 MG TABLET PO SCH (06:52)
[2021-04-11] MEDS: INSULIN SLIDING SCALE (NOVOLOG) 1 VIAL SQ SCH ×3 (06:53→22:53)
[2021-04-11] MEDS ORDERED: INSULIN (NOVOLOG) ASPART 100 UNITS/ML 10ML VIAL ONE (06:54)
[2021-04-11] MEDS: DULoxetine HCL 30 MG CAPSULE.DR PO SCH (10:06)
[2021-04-11] MEDS: ASPIRIN COATED 81 MG TABLET.EC PO SCH (10:06)
[2021-04-11] MEDS: GABAPENTIN 300 MG CAPSULE PO SCH ×2 (10:06→21:45)
[2021-04-11] MEDS: PRENATAL VITAMINS W/ FOLIC ACID TABLET (FP) PO SCH (10:06)
[2021-04-11] MEDS: LISINOPRIL 5 MG TABLET PO SCH (10:06)
[2021-04-11] MEDS: METHYL SALICYLATE/MENTHOL OINT 30 GM TUBE TP SCH ×2 (10:07→21:47)
[2021-04-11] MEDS: LIDOCAINE 5% TOPICAL PATCH TP SCH (10:07)
[2021-04-11] MEDS: FENOFIBRIC ACID 135 MG CAP PO SCH (10:08)
[2021-04-11] MEDS: amLODIPine BESYLATE 5 MG TABLET (FP) PO SCH (10:08)
[2021-04-11] MEDS: CHOLECALCIFEROL (VIT D3) 1,000 UNIT (25 MCG) TABLET PO SCH (10:09)
[2021-04-11] MEDS: ABACAVIR/DOLUTEGRAVIR/LAMIVUDI (TRIUMEQ) TABLET -NF PO SCH (10:09)
[2021-04-11] MEDS: RIVAROXABAN 20 MG TABLET PO SCH (10:10)
[2021-04-11] MEDS: BENZOCAINE/MENTH/CETYLPYRD CL 1 EACH LOZENGE MM PRN (10:10)
[2021-04-11] MEDS ORDERED: INSULIN (NOVOLOG) ASPART 100 UNITS/ML 10ML VIAL SQ ONE (16:47)
[2021-04-11] MEDS: ATORVASTATIN CA 40 MG TABLET (FP) PO SCH (21:45)
[2021-04-11] MEDS: MIRTAZAPINE 15 MG TABLET (FP) PO SCH (21:45)
[2021-04-11] MEDS: MELATONIN 5 MG TABLETS PO SCH (21:45)
[2021-04-11] MEDS: THIAMINE HCL 100 MG TABLET (FP) PO SCH (21:45)
[2021-04-11] MEDS: LIDOCAINE PATCH REMOVAL MC SCH (21:46)
[2021-04-12] MEDS: methaDONE HCL 40 MG DISPERSABLE TABLET PO SCH (06:40)
[2021-04-12] MEDS: sitaGLIPtin PHOSPHATE 50 MG TABLET PO SCH (06:42)
[2021-04-12] MEDS: INSULIN SLIDING SCALE (NOVOLOG) 1 VIAL SQ SCH ×4 (06:45→21:43)
[2021-04-12] MEDS ORDERED: INSULIN (NOVOLOG) ASPART 100 UNITS/ML 10ML VIAL ONE ×3 (06:51→16:31)
[2021-04-12] MEDS: GABAPENTIN 300 MG CAPSULE PO SCH ×2 (10:16→21:41)
[2021-04-12] MEDS: ASPIRIN COATED 81 MG TABLET.EC PO SCH (10:16)
[2021-04-12] MEDS: amLODIPine BESYLATE 5 MG TABLET (FP) PO SCH (10:16)
[2021-04-12] MEDS: DULoxetine HCL 30 MG CAPSULE.DR PO SCH (10:16)
[2021-04-12] MEDS: PRENATAL VITAMINS W/ FOLIC ACID TABLET (FP) PO SCH (10:16)
[2021-04-12] MEDS: LISINOPRIL 5 MG TABLET PO SCH (10:16)
[2021-04-12] MEDS: ABACAVIR/DOLUTEGRAVIR/LAMIVUDI (TRIUMEQ) TABLET -NF PO SCH (10:18)
[2021-04-12] MEDS: CHOLECALCIFEROL (VIT D3) 1,000 UNIT (25 MCG) TABLET PO SCH (10:18)
[2021-04-12] MEDS: FENOFIBRIC ACID 135 MG CAP PO SCH (10:19)
[2021-04-12] MEDS: LIDOCAINE 5% TOPICAL PATCH TP SCH (10:19)
[2021-04-12] MEDS: METHYL SALICYLATE/MENTHOL OINT 30 GM TUBE TP SCH ×2 (10:19→21:41)
[2021-04-12] MEDS: RIVAROXABAN 20 MG TABLET PO SCH (10:20)
[2021-04-12] MEDS: BENZOCAINE/MENTH/CETYLPYRD CL 1 EACH LOZENGE MM PRN (10:21)
[2021-04-12] MEDS: ATORVASTATIN CA 40 MG TABLET (FP) PO SCH (21:40)
[2021-04-12] MEDS: THIAMINE HCL 100 MG TABLET (FP) PO SCH (21:41)
[2021-04-12] MEDS: LIDOCAINE PATCH REMOVAL MC SCH (21:41)
[2021-04-12] MEDS: MIRTAZAPINE 15 MG TABLET (FP) PO SCH (21:41)
[2021-04-12] MEDS: MELATONIN 5 MG TABLETS PO SCH (21:41)
[2021-04-13] MEDS: sitaGLIPtin PHOSPHATE 50 MG TABLET PO SCH (06:24)
[2021-04-13] MEDS ORDERED: INSULIN (NOVOLOG) ASPART 100 UNITS/ML 10ML VIAL ONE ×2 (06:24→07:53)
[2021-04-13] MEDS: INSULIN SLIDING SCALE (NOVOLOG) 1 VIAL SQ SCH (06:25)
[2021-04-13] MEDS ORDERED: methaDONE HCL 40 MG DISPERSABLE TABLET PO SCH (06:30)
[2021-04-13 07:19] VITALS: TEMP 97.1
[2021-04-13 09:16] VITALS: BP 127/77; PULSE 93
[2021-04-13] MEDS: METHYL SALICYLATE/MENTHOL OINT 30 GM TUBE TP SCH (09:31)
[2021-04-13] MEDS: amLODIPine BESYLATE 5 MG TABLET (FP) PO SCH (09:32)
[2021-04-13] MEDS: DULoxetine HCL 30 MG CAPSULE.DR PO SCH (09:32)
[2021-04-13] MEDS: ASPIRIN COATED 81 MG TABLET.EC PO SCH (09:32)
[2021-04-13] MEDS: LISINOPRIL 5 MG TABLET PO SCH (09:32)
[2021-04-13] MEDS: PRENATAL VITAMINS W/ FOLIC ACID TABLET (FP) PO SCH (09:32)
[2021-04-13] MEDS: GABAPENTIN 300 MG CAPSULE PO SCH (09:32)
[2021-04-13] MEDS: CHOLECALCIFEROL (VIT D3) 1,000 UNIT (25 MCG) TABLET PO SCH (09:34)
[2021-04-13] MEDS: ABACAVIR/DOLUTEGRAVIR/LAMIVUDI (TRIUMEQ) TABLET -NF PO SCH (09:35)
[2021-04-13] MEDS: RIVAROXABAN 20 MG TABLET PO SCH (09:35)
[2021-04-13] MEDS: FENOFIBRIC ACID 135 MG CAP PO SCH (09:35)
[2021-04-13] MEDS: LIDOCAINE 5% TOPICAL PATCH TP SCH (09:36)
== END 2021-04-13 11:00 | disposition home or self-care (01) | DRG 772 ==
LOC: YASAS 17:33 → Y5N 17:34
PROVIDERS: ADMIT Allergy & Immunology; ATTEND Allergy & Immunology
PROC: HZ42ZZZ Group Counseling for Substance Abuse Treatment, Cognitive-Behavioral (ICD-10-PCS; principal; 2021-03-29)
DX: F13.20 Sedative, hypnotic or anxiolytic dependence, uncomplicated (principal); F11.20 Opioid dependence, uncomplicated; I10 Essential (primary) hypertension; I25.10 Atherosclerotic heart disease of native coronary artery without angina pectoris; E11.9 Type 2 diabetes mellitus without complications; E78.5 Hyperlipidemia, unspecified; J45.909 Unspecified asthma, uncomplicated; Z21 Asymptomatic human immunodeficiency virus [HIV] infection status; L98.8 Other specified disorders of the skin and subcutaneous tissue; M25.571 Pain in right ankle and joints of right foot; Z79.4 Long term (current) use of insulin; Z79.84 Long term (current) use of oral hypoglycemic drugs
CPT/HCPCS: 82962